=== PATIENT | female | born 1965 | race African-American/Black ===

== ENCOUNTER → 2016-11-12 | Outpatient (CLI) | payer OTHER ==
[2015-02-23 14:28] VITALS: BP 124/87
[~2016-11-12] MED LIST: AMLO10TA4 PO; AMOX1TAB61 PO; CHLO25TA PO; CLON0.1T PO; CLON1TAB23 PO; DIVA500T2 PO; DOCU-27 PO; ESTR1PAT10 TD; HYDR-2762 PO; NICO1PAT25 TD; OXYC-323 PO; Oxycodone Hcl/Acetaminophen PO; SERT100T PO; SULI200T2 PO; TOPI100T39 PO
--- NOTE | 2016-11-12 14:40 | RAD ---
Indication cough for 2 months. History of asthma. Hypertension. PA and lateral views of the chest were obtained. Comparison is made to an examination 01/04/2015. The heart and pulmonary vessels appear normal. The lungs are clear. Significant pleural fluid is not seen. There is no pneumothorax. A significant change compared to the previous exam is not seen. IMPRESSION: No acute or focal process. No significant change
== END | disposition home or self-care (01) ==
LOC: RAD 12:53
PROVIDERS: ATTEND Internal Medicine Pulmonary Disease
DX: R05 Cough (principal); I10 Essential (primary) hypertension; J45.909 Unspecified asthma, uncomplicated
CPT/HCPCS: 71020

== ENCOUNTER → 2017-03-17 | Outpatient (CLI) | payer OTHER ==
[2015-02-23 14:28] VITALS: BP 124/87
--- NOTE | 2017-03-17 13:38 | RAD ---
Indication shortness of breath. History of hypertension and asthma and COPD. PA and lateral views of the chest were obtained and are compared to an exam November 12, 2016. The heart and pulmonary vessels appear normal. The lungs are clear. There is no pleural fluid or pneumothorax. There has not been a significant change compared to the previous exam. IMPRESSION: No acute or focal process. No significant change
== END | disposition home or self-care (01) ==
LOC: RAD 13:04
PROVIDERS: ATTEND Internal Medicine Pulmonary Disease
DX: R06.02 Shortness of breath (principal); I10 Essential (primary) hypertension; J44.9 Chronic obstructive pulmonary disease, unspecified
CPT/HCPCS: 71020

== ENCOUNTER → 2017-12-15 | Outpatient (CLI) | payer OTHER | END | disposition home or self-care (01) | LOC: RAD 12:15 | DX: R06.02 Shortness of breath (principal); M77.8 Other enthesopathies, not elsewhere classified | CPT/HCPCS: 71046 ==

== ENCOUNTER 2018-06-29 09:57 | Emergency (ER) | payer OTHER ==
[~2018-06-29] VITALS: Ht 167.6 cm; Wt 117.9 kg
[~2018-06-29 09:57] MED LIST changes: +DOCU-109 PO; -DOCU-27 PO; -TOPI100T39 PO; +TOPI100T42 PO
[2018-06-29 10:05] VITALS: BP 161/79
[2018-06-29] MEDS ORDERED: DIPHTH,PERTUSS(ACELL),TET TOX 0.5 ML DISP.SYRIN. VAX IM ONE (10:15)
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
[2018-06-29] MEDS ORDERED: SULF1TAB24 PO (11:41)
== END 2018-06-29 11:35 | disposition home or self-care (01) ==
LOC: ER 09:57
DX: S01.01XA Laceration without foreign body of scalp, initial encounter (principal); S80.861A Insect bite (nonvenomous), right lower leg, initial encounter; L03.115 Cellulitis of right lower limb; L08.9 Local infection of the skin and subcutaneous tissue, unspecified; I10 Essential (primary) hypertension; J44.9 Chronic obstructive pulmonary disease, unspecified; F14.10 Cocaine abuse, uncomplicated; Z88.6 Allergy status to analgesic agent; Z91.041 Radiographic dye allergy status; Z91.012 Allergy to eggs; Z91.018 Allergy to other foods; Y04.2XXA Assault by strike against or bumped into by another person, initial encounter; W57.XXXA Bitten or stung by nonvenomous insect and other nonvenomous arthropods, initial encounter; Y93.89 Activity, other specified; Y92.89 Other specified places as the place of occurrence of the external cause; Y99.8 Other external cause status
CPT/HCPCS: 70450; 90471; 90715; 99284-25

== ENCOUNTER → 2018-09-25 | Outpatient (CLI) | payer OTHER ==
[~2018-09-25] MED LIST changes: -HYDR-2762 PO; +HYDR-2765 PO; -OXYC-323 PO; +OXYC1TAB15 PO; +SULF1TAB24 PO
== END | disposition home or self-care (01) ==
LOC: LAB 12:30
PROVIDERS: ATTEND Internal Medicine Pulmonary Disease
DX: R06.00 Dyspnea, unspecified (principal)
CPT/HCPCS: 36415; 82784

== ENCOUNTER 2020-10-17 05:46 | Emergency (ER) | payer OTHER ==
[~2020-10-17] VITALS: Ht 167.6 cm; Wt 114.5 kg
[~2020-10-17 05:46] MED LIST changes: -CHLO25TA PO; +CHLO25TA10 PO
[2020-10-17 06:00] VITALS: BP 137/88
--- NOTE | 2020-10-17 06:36 | ED.ADGEN ---
Past Medical History Past Medical History: COPD, Hypertension, Seizure Additional Past Medical Histor: THALMIC VASCULAR MALFORMATION Past Surgical History: Cholecystectomy, Hysterectomy Smoking Status: Current Every Day Smoker Additional Information: 10/28 PPD Alcohol Use: None Drug Use: Other General Adult EDM: Chief Complaint: MULTIPLE COMPLAINTS HPI: HPI: 55-year-old female coming in for multiple complaints. History mostly provided by nursing staff. Patient states that she is already told people that she is here for and states that she just does not feel well and her body hurts. Per nursing staff she has nonproductive cough, body aches, fever, loss of smell and taste, and denies any GI complaints. Has not gotten her flu vaccine this year. Patient states she has been taking Advil but has not taken anything today. Refused Covid swab, difficult to ascertain what the patient wants from this emergency department visit. Patient soon after admitted to nurse that she was here because she was wanting a cough medicine, is requesting Phenergan with codeine. Review of Systems: Review of Systems: Constitutional: Fever and chills Eyes: Denies change in visual acuity. [] HENT: Denies nasal congestion or sore throat. [] Respiratory: Nonproductive cough, no shortness of breath Cardiovascular: Denies chest pain or edema. [] GI: Denies abdominal pain, nausea, vomiting, bloody stools or diarrhea. [] : Denies dysuria. [] Musculoskeletal: Denies back pain or joint pain. [] Myalgias Integument: Denies rash. [] Neurologic: Denies headache, focal weakness or sensory changes. [] Endocrine: Denies polyuria or polydipsia. [] Lymphatic: Denies swollen glands. [] Psychiatric: Denies depression or anxiety. [] Current Medications: Current Medications Medications (Trade) Dose Ordered Sig/Paul Start Time Stop Time Status Last Admin Dose Admin Ketorolac Tromethamine (Toradol Im) 60 mg 1X ONCE 10/17/20 07:00 10/17/20 07:01 DC 10/17/20 06:51 60 MG Allergies: Allergies: Allergies Coded Allergies Type Severity Reaction Last Updated Verified Iodinated Contrast- Oral and IV Dye Allergy Intermediate Hives 01/04/15 No acetaminophen Allergy Intermediate Rash 06/29/18 Yes banana Allergy Intermediate HIVES ( [employer] [place]) 05/18/14 No egg Allergy Intermediate Rash 05/18/14 Yes Physical Exam: PE: Constitutional: Well developed, well nourished, no acute distress, non-toxic appearance. [] HENT: Normocephalic, atraumatic, bilateral external ears normal, oropharynx moist, no oral exudates, nose normal. [] Eyes: PERRLA, EOMI, conjunctiva normal, no discharge. [] Neck: Normal range of motion, no tenderness, supple, no stridor. [] Cardiovascular:Heart rate regular rhythm, no murmur [] Lungs & Thorax: No tachypnea, no respiratory distress Abdomen: Nondistended Skin: Warm, dry, no erythema, no rash. [] Extremities: No deformity, no range of motion Neurologic: Alert and oriented X 3, normal motor function, normal sensory function, no focal deficits noted. [] Psychologic: Affect normal, judgement normal, mood normal. [] Current Patient Data: Labs: Laboratory Tests Test 10/17/20 06:03 Influenza Type A Antigen Negative (NEGATIVE) Influenza Type B Antigen Negative (NEGATIVE) Vital Signs: Vital Signs Date Time Temp Pulse Resp B/P (MAP) Pulse Ox O2 Delivery O2 Flow Rate FiO2 10/17/20 06:00 100.3 103 18 137/88 (104) 99 Room Air 100.3 EKG: EKG: [] Heart Score: Risk Factors: Risk Factors: DM, Current or recent (<one month) smoker, HTN, HLP, family history of CAD, obesity. Risk Scores: Score 0 - 3: 2.5% MACE over next 6 weeks - Discharge Home Score 4 - 6: 20.3% MACE over next 6 weeks - Admit for Clinical Observation Score 7 - 10: 72.7% MACE over next 6 weeks - Early Invasive Strategies Radiology/Procedures: Radiology/Procedures: [] Course & Med Decision Making: Course & Med Decision Making Pertinent Labs and Imaging studies reviewed. (See chart for details) [] Dragon Disclaimer: Kieran Disclaimer: This electronic medical record was generated, in whole or in part, using a voice recognition dictation system. Departure Departure Impression: Primary Impression: Viral syndrome Disposition: 01 DC HOME SELF CARE/HOMELESS Condition: STABLE Referrals: TAMERA PADILLA (PCP) Patient Instructions: Viral Syndrome Additional Instructions: You have been tested for or diagnosed with COVID-19. It is an infection caused by a new type of coronavirus. COVID-19 will cause cold-like or mild flu symptoms in most. It can cause more severe symptoms like problems breathing in some. There is no treatment for COVID-19. The body will clear the infection over time. Self-care will help to ease discomfort. Steps to Take: Self-Care Rest as needed. Healthy habits may help you feel better. Steps include: Choose healthy foods including fruits and vegetables. Drink water throughout the day. Get plenty of sleep each night. If you smoke, try to quit. It may ease breathing. Avoid alcohol. Keep Others Healthy The virus can spread to others. Droplets are released every time you sneeze or cough. The droplets can get into the mouth, nose, or eyes of people near you and lead to infection. To lower the chances of spreading COVID-19 to others: Stay at home until your doctor has said it is safe to leave. If you tested positive this will mean staying isolated until both of the following are true: At least 7 days have passed since the start of illness. You are free of fever for at least 72 hours without the use of medicine. During this time: - Avoid public areas, events, or transportation. Do not return to work or school until your doctor has said it is safe to do so. - Call ahead if you need to go to a medical center. Let them know you may have COVID-19. It will help them guide you where to go. They may also ask you to wear a facemask when you come to the office. - If you call for emergency medical services, let them know you may have COVID- 19. While at home: - Try to avoid close contact with others. Stay about 6 feet away. - If possible, spend most of your time in a separate room from others. - Use a face mask if you will be in close contact with others such as sharing a room or vehicle. - Have someone wipe down common surfaces in the home. Use household cage fighter every day on areas like doorknobs, counters, or sinks. - Cough or sneeze into a tissue. Throw the tissue away right after use. If a tissue is not available, cough or sneeze into your elbow. - Wash your hands often. Wash them after sneezing or coughing. Use soap and water and wash for at least 20 seconds. Alcohol based hand truck cleaner can be used if soap and water is not available. - Do not prepare food for others. Avoid sharing personal items like forks, spoons, or toothbrushes. - Avoid close contact with pets while you are sick. There is no evidence of the virus passing to pets. This is a safety step until more is known about this virus. Isolation can be frustrating. Social interaction can help. Keep in touch with friends and family through phone and tech options. You can still interact with others in your home, just keep a safe distance of about 6 feet. Follow-up: Your doctors office will check in with you to see if there are any changes in your health. You may be asked to keep track of symptoms to share with them. They will also let you know when you are clear to be in public again. Problems to Look Out For: Contact your doctor if your recovery is not going as you expect. Get emergency care if you have problems such as: - Trouble breathing - Nonstop chest pain or pressure - Changes in awareness, confusion, or problems waking - Lips or face have bluish color - Worsening of symptoms If you think you have an emergency, call for emergency medical services right away. As taken from [facility] LUMA OSWALD MD Oct 17, 2020 06:36
[2020-10-17] MEDS ORDERED: KETOROLAC 60 MG/2 ML VIAL. IM ONE (07:00)
[2020-10-17 07:11] LABS: INFLUENZA B PATIENT NEGATIVE (NEGATIVE)
[2020-10-17 07:12] LABS: INFLUENZA A PATIENT NEGATIVE (NEGATIVE)
== END 2020-10-17 07:25 | disposition home or self-care (01) ==
LOC: ER 05:46
DX: U07.1 COVID-19 (principal); B34.9 Viral infection, unspecified; J44.9 Chronic obstructive pulmonary disease, unspecified; I10 Essential (primary) hypertension; F17.200 Nicotine dependence, unspecified, uncomplicated; Z91.041 Radiographic dye allergy status; Z88.6 Allergy status to analgesic agent; Z91.012 Allergy to eggs; Z91.018 Allergy to other foods
CPT/HCPCS: 87804; 96372; 99283; C9803; J1885; U0003